=== PATIENT | male | born 1985 | race African-American/Black ===

== ENCOUNTER 2016-08-20 22:02 | Emergency (ER) | payer MEDICAID, OTHER ==
[~2016-08-20] VITALS: Ht 172.7 cm; Wt 93.0 kg
[2016-08-21 02:51] VITALS: BP 129/78
== END 2016-08-21 04:00 | disposition home or self-care (01) ==
LOC: ER 08-21 02:14
DX: S00.86XA Insect bite (nonvenomous) of other part of head, initial encounter (principal); L08.9 Local infection of the skin and subcutaneous tissue, unspecified; L73.8 Other specified follicular disorders; Z88.1 Allergy status to other antibiotic agents; W57.XXXA Bitten or stung by nonvenomous insect and other nonvenomous arthropods, initial encounter; Y92.018 Other place in single-family (private) house as the place of occurrence of the external cause
CPT/HCPCS: 99283